=== PATIENT | female | born 1995 | race Two or more races ===

== ENCOUNTER 2021-03-21 01:26 | Emergency (ER) | payer OTHER ==
[~2021-03-21] VITALS: Ht 170.2 cm; Wt 59.0 kg
[2021-03-21] MEDS ORDERED: PRENATA CHEWAB1 EACH (01:36)
[2021-03-21] MEDS ORDERED: DUI500 PO (04:50)
== END 2021-03-21 04:58 | disposition home or self-care (01) ==
LOC: ER 01:26
DX: O20.9 Hemorrhage in early pregnancy, unspecified (principal); Z3A.01 Less than 8 weeks gestation of pregnancy; R10.2 Pelvic and perineal pain

== ENCOUNTER 2021-04-09 09:43 | Day surgery (SDC) | payer OTHER ==
[~2021-04-09 09:43] MED LIST: DUI500 PO; PRENATA CHEWAB1 EACH
[2021-04-09] MEDS ORDERED: NAPR500T14 PO (15:26)
[2021-04-09] MEDS ORDERED: MORGIDOX100 MG PO (15:26)
== END 2021-04-09 18:35 | disposition home or self-care (01) ==
LOC: CIR.AMB 09:43
PROVIDERS: ATTEND Obstetrics & Gynecology
DX: O02.1 Missed abortion (principal)

== ENCOUNTER 2022-08-05 12:31 | Outpatient (CLI) | payer OTHER ==
[~2022-08-05 12:31] MED LIST changes: +MORGIDOX100 MG PO; +NAPR500T14 PO
== END 2022-08-05 13:01 | disposition home or self-care (01) ==
LOC: PRENATAL 12:31
PROVIDERS: ATTEND Obstetrics & Gynecology Maternal & Fetal Medicine
DX: Z53.21 Procedure and treatment not carried out due to patient leaving prior to being seen by health care provider (principal)